=== PATIENT | male | born 1975 ===

== ENCOUNTER 2024-11-19 06:42 | Day surgery (SDC) | payer OTHER ==
[2024-11-19] MEDS ORDERED: CEFAZOLIN SODIUM 1,000 MG VIAL ONE (08:17)
[2024-11-19] MEDS ORDERED: TYLENOL ARTHRI650 MG PO (09:27)
[2024-11-19] MEDS ORDERED: MIRALAX17 GM PO (09:27)
[2024-11-19] MEDS ORDERED: KETO10TA2 PO (09:27)
[2024-11-19] MEDS ORDERED: TRAMADOL HCL50 MG PO (09:27)
[2024-11-19] MEDS ORDERED: KETOROLAC TROMETHAMINE 30 MG VIAL ONE (09:30)
[2024-11-19] MEDS ORDERED: BUPIVACAINE HCL/MPF 0.5% 30ML VIAL ONE (10:18)
[2024-11-19] MEDS ORDERED: MORPHINE SULFATE 4 MG/ML VIAL IV ONE ×2 (12:15→12:45)
== END 2024-11-19 15:00 | disposition home or self-care (01) ==
LOC: CIR.AMB 06:42
PROVIDERS: ATTEND Surgery
DX: K40.90 Unilateral inguinal hernia, without obstruction or gangrene, not specified as recurrent (principal)
CPT/HCPCS: 49650; C1781